=== PATIENT | female | born 1975 ===

== ENCOUNTER 2016-09-29 17:00 | Observation (INO) | payer OTHER ==
[2016-09-29 17:16] VITALS: BMI 27.3
[2016-09-29 19:09] LABS: HEMATOCRIT 43.3 % (36.0-48.0); MEAN CELL VOLUME 76.6 fL (80.0-105.0); MEAN CORPUSCULAR HGB CONC 33.9 g/dl (31.0-37.0); MEAN PLATELET VOLUME 8.9 fl (7.0-11.0); RED CELL DISTRIBUTION WIDTH 15.3 % (11.5-14.5); WHITE BLOOD COUNT 10.7 10^3/ul (4.5-11.0)
[2016-09-29 19:40] LABS: ALB/GLOB RATIO 1.1 (1.1-1.8); ALKALINE PHOSPHATASE 94 U/L (38-133); ALT/SGPT 39 U/L (7-56); AST/SGOT 22 U/L (15-39); BILIRUBIN,TOTAL 0.6 mg/dL (0.2-1.3); BLOOD UREA NITROGEN 16 mg/dL (7-21); CALCIUM 9.8 mg/dL (8.4-10.5); CARBON DIOXIDE 28 mmol/L (21-33); CHLORIDE 101 mmol/L (98-107); GFR AFRICAN-AMERICAN > 60; GLUCOSE,RANDOM 89 mg/dL (70-110); LIPASE 67 U/L (23-300); POTASSIUM 4.7 mmol/L (3.6-5.0); SODIUM 138 mmol/L (132-148); TOTAL PROTEIN 8.6 g/dL (5.8-8.3)
[2016-09-29 20:17] LABS: URINE BILIRUBIN NEGATIVE (NEGATIVE); URINE BLOOD MODERATE (NEGATIVE); URINE GLUCOSE (UA) NEGATIVE (NEGATIVE); URINE KETONE NEGATIVE (NEGATIVE); URINE LEUKOCYTE ESTERASE TRACE Leu/uL (NEGATIVE); URINE PROTEIN NEGATIVE mg/dL (<30 mg/dL); URINE UROBILINOGEN 0.2 E.U./dL (<1 E.U./dL)
[2016-09-29 20:26] LABS: URINE APPEARANCE SLIGHT-CLOUDY (CLEAR); URINE COLOR YELLOW (YELLOW)
--- NOTE | 2016-09-29 20:34 | ED PDOC ---
Arrival/HPI - General Historian: Patient - History of Present Illness Time/Duration: > month Symptom Onset: Gradual Symptom Course: Unchanged <Kiel Green - Last Filed: 09/29/16 23:03> <Lisa Garcia - Last Filed: 09/29/16 23:50> - General Chief Complaint: Abdominal Pain Time Seen by Provider: 09/29/16 17:43 - History of Present Illness Narrative History of Present Illness (Text): 09/29/16 20:30 41 year old female who denies past medical history presents to the emergency department with 3 month duration of epigastric pain. She states the pain is worse with eating. Patient reports intermittent nausea but none now. She also reports diarrhea earlier which has fully resolved. Denies black stool, hematuria , dysmenorrhea. (Kiel Green) Modifying Factors (Text): Worse with eating (Kiel Green) Past Medical History - Provider Review Nursing Documentation Reviewed: Yes - Psychiatric Hx Substance Use: No <Kiel Green - Last Filed: 09/29/16 23:03> Family/Social History - Physician Review Nursing Documentation Reviewed: Yes Family/Social History: Unknown Family HX Smoking Status: Unknown If Ever Smoked Hx Alcohol Use: No Hx Substance Use: No <Kiel Green - Last Filed: 09/29/16 23:03> Allergies/Home Meds <Kiel Green - Last Filed: 09/29/16 23:03> <Lisa Garcia - Last Filed: 09/29/16 23:50> Allergies/Adverse Reactions: Allergies No Known Allergies Allergy (Verified 09/29/16 17:17) Review of Systems - Physician Review All systems were reviewed & negative as marked: Yes <Kiel Green - Last Filed: 09/29/16 23:03> Physical Exam Vital Signs Reviewed: Yes Temperature: Afebrile Blood Pressure: Normal Pulse: Regular Respiratory Rate: Normal Appearance: Positive for: Well-Appearing, Non-Toxic, Comfortable Pain Distress: None Mental Status: Positive for: Alert and Oriented X 3 <Kiel Green - Last Filed: 09/29/16 23:03> <Lisa Garcia - Last Filed: 09/29/16 23:50> - Physical Exam Narrative Physical Exam (Text): - Review of Systems Constitutional: Normal. absent: Fatigue, Weight Change, Fevers Eyes: Normal ENT: Normal Respiratory: Normal absent: SOB, Cough, Sputum Cardiovascular: Normal absent: Chest pain, Palpitations, Syncope Gastrointestinal: Abdominal pain, Diarrhea (resolved), Nausea (resolved) absent : Vomiting, Black stool Genitourinary: Normal. absent: Dysuria, Frequency, Hematuria, Dysmenorrhea Musculoskeletal: Normal. absent: Arthralgias, Back Pain, Neck Pain Skin: Normal Neurological: Normal absent: Focal Weakness Endocrine: Normal Hemo/Lymphatic: Normal Psychiatric: Normal - Physical exam Patient appears age appropriate, speaking full sentences without difficulty - Systems Exam Head: Present: Atraumatic, Normocephalic Pupils: Present: PERRL Extraocular Muscles: Present: EOMI Conjunctiva: Present: Normal Mouth: Present: Moist Mucous Membranes Neck: Present: Normal Range of Motion. No: MIDLINE TENDERNESS, Paraspinal Tenderness Respiratory/Chest: Present: Clear to Auscultation, Good Air Exchange. No: Respiratory Distress, Accessory Muscle Use, Tachypnic Cardiovascular: Present: Regular Rate and Rhythm, Normal S1, S2, Peripheral Pulses Present. No: Murmurs Abdomen: Present: Mild epigastric tenderness to palpation, Normal Bowel Sounds, No: Peritoneal Signs, Rebound, Guarding, Distention Back: Present: Normal Inspection. No: Midline Tenderness, Paraspinal Tenderness Upper Extremity: Present: Normal Inspection. No: Cyanosis, Edema Lower Extremity: Present: Normal Inspection. No: Edema Neurological: Present: GCS=15, Speech Normal, cranial nerves II through XII fully intact with no cerebellar abnormality, neuro-sensory fully intact. No focal neurological deficits. Skin: Present: Warm, Dry, Normal Color. No: Rashes Lymphatic: Present: OX3, NI, NC Psychiatric: Present: Alert, Oriented x 3, Normal Insight, Normal Concentration (Zelikson,Kiel) Vital Signs Temp Pulse Resp BP Pulse Ox 09/29/16 21:50 73 19 104/49 L 99 09/29/16 20:50 78 18 97/66 L 97 09/29/16 19:48 76 18 100/66 100 09/29/16 17:18 97.8 F 63 17 104/65 100 Medical Decision Making <Zelikson,Kiel - Last Filed: 09/29/16 23:03> <Lisa Garcia - Last Filed: 09/29/16 23:50> ED Course and Treatment: Impression: 41 year old female who denies past medical history presents to the emergency department with 3 month duration of epigastric pain. On physical exam , patient has mild epigastric tenderness to palpation Differential Diagnosis included but are not limited to: Gastritis vs nonspecific abdominal pain Plan: -- CT Abdomen/Pelvis -- Protonix -- Labs -- Reassess and disposition Progress Notes: 09/29/16 22:02 On reevaluation, patient reports that she feels much better and would like to be discharged home. Patient's repeat abdominal exam is soft, nontender, non distended with positive bowel sounds in all 4 quadrants and no peritoneal signs. Patient is tolerating PO without any difficulty. Patient refusing to wait for CAT scan in the emergency department and asking to be discharged home at this time. Patient is aware of the risks of leaving without imaging. Pt states she understands to return to the ER right away for new or worsening symptoms or for inability to f/u with PMD or specialist as instructed. Patient states that she fully agrees with and understands discharge instructions. States that she agrees with the plan and disposition. Verbalized and repeated discharge instructions and plan. I have given the patient opportunity to ask any additional questions. 09/29/16 23:03 pt now states she wants to stay and wait for CT signed out to Dr. Garcia in stable condition (Kiel Green) - Lab Interpretations Lab Results: 09/29/16 18:48 09/29/16 19:27 Lab Results 09/29/16 20:01: Urine Color Yellow, Urine Appearance Slight-cloudy, Urine pH 6.0 , Ur Specific [place] 1.020, Urine Protein Negative, Urine Glucose (UA) Negative , Urine Ketones Negative, Urine Blood Moderate H, Urine Nitrate Negative, Urine Bilirubin Negative, Urine Urobilinogen 0.2, Ur Leukocyte Esterase Trace H, Urine RBC 1 - 3, Urine WBC 1 - 3, Ur Epithelial Cells 1 - 3 09/29/16 19:27: Sodium 138, Potassium 4.7, Chloride 101, Carbon Dioxide 28, Anion Gap 14, BUN 16, Creatinine 0.7, Est GFR ( Amer) > 60, Est GFR (Non- Af Amer) > 60, Random Glucose 89, Calcium 9.8, Total Bilirubin 0.6, AST 22, ALT 39, Alkaline Phosphatase 94, Total Protein 8.6 H, Albumin 4.5, Globulin 4.1, Albumin/Globulin Ratio 1.1, Lipase 67 09/29/16 18:48: WBC 10.7, RBC 5.65, Hgb 14.7, Hct 43.3, MCV 76.6 L, MCH 26.0, MCHC 33.9, RDW 15.3 H, Plt Count 351, MPV 8.9 - RAD Interpretation Radiology Orders: 09/29/16 18:35 ABD & PELVIS IV CONTRAST ONLY [CT] Stat - Medication Orders Current Medication Orders: Discontinued Medications Pantoprazole Sodium (Protonix Inj) 40 mg IVP STAT STA Stop: 09/29/16 18:37 Last Admin: 09/29/16 19:29 Dose: 40 mg ED OBSERVATION Date of observation admission: 09/29/16 Time of observation admission: 17:10 <Kiel Green - Last Filed: 09/29/16 23:03> Discharge: Yes <Lisa Garcia - Last Filed: 09/29/16 23:50> - Observation admission statement Patient is being placed in observation because:: abdominal pain (Kiel Green) - Goals of Observation Goals of observation are:: labs and imaging (Kiel Green) - Progress Note Progress Note: 09/29/16 23:43 Case signed out to me by Dr. Green, pending CT Scan, revaluation and disposition. CT Abdomen and Pelvis results reviewed: FINDINGS: Lower thorax: The bilateral lung bases are clear. ABDOMEN: Liver: No acute findings. Gallbladder and bile ducts: The gallbladder is decompressed. No calcified stones. No significant intra- or extrahepatic biliary ductal dilation. Pancreas: Enhances homogeneously. No ductal dilation. No discrete mass. Spleen: No acute findings. Adrenals: No acute findings. Kidneys and ureters: No acute findings. No hydronephrosis or renal calculi. No discrete solid mass. PELVIS: Bladder: No acute findings. Reproductive: Multiple areas of fluid attenuation are identified within the right adnexa, the largest measuring 5.7 cm in greatest dimension. Appendix: The air filled appendix is of normal caliber (series 2, image 90) . ABDOMEN and PELVIS: Stomach and bowel: No obstruction. No mucosal thickening. Peritoneum: No significant fluid collection. No free air. Lymph nodes: No pathologically enlarged lymph nodes. Vasculature: Unremarkable. Bones: No acute fracture. IMPRESSION: 5.7 cm right adnexal cyst, for which dedicated ultrasound may be performed for confirmation. 09/29/16 23:46 Patient endorsed to me by Dr. Green to follow up CT results. Labs were unremarkable. CT showed a R adnexal cyst, which is likely incidental as it is not the location of the pain; she may obtain an outpatient sono as she follows up with [facility] as she has been instructed to do - will d/c home to f/u [facility] and medical clinic. (Lisa Garcia) - Scribe Statement The provider has reviewed the documentation as recorded by the Scribe <Kiel Green - Last Filed: 09/29/16 23:03> <Lisa Garcia - Last Filed: 09/29/16 23:50> - Scribe Statement Carlos Vasquez Provider Scribe Attestation: All medical record entries made by the Scribe were at my direction and personally dictated by me. I have reviewed the chart and agree that the record accurately reflects my personal performance of the history, physical exam, medical decision making, and the department course for this patient. I have also personally directed, reviewed, and agree with the discharge instructions and disposition. (Kiel Green) Disposition/Present on Arrival - Present on Arrival Any Indicators Present on Arrival: No History of DVT/PE: No History of Uncontrolled Diabetes: No Urinary Catheter: No History of Decub. Ulcer: No History Surgical Site Infection Following: None - Disposition Have Diagnosis and Disposition been Completed?: Yes Disposition Time: 17:10 Patient Plan: Discharge <Kiel Green - Last Filed: 09/29/16 23:03> - Disposition Patient Plan: Discharge <Lisa Garcia - Last Filed: 09/29/16 23:50> - Disposition Diagnosis: Abdominal pain, Cyst of ovary, right Disposition: HOME/ ROUTINE Patient Problems: Current Active Problems Problem Status Onset Abdominal pain Acute Condition: GOOD Discharge Instructions (ExitCare): Abdominal Pain (ED), Ovarian Cyst (ED) Print Language: SWEDISH Additional Instructions: FOLLOW UP WITH GYNECOLOGY AND PRIMARY CARE. PLEASE RETURN TO THE EMERGENCY DEPARTMENT FOR NEW OR WORSENING SYMPTOMS. RETURN RIGHT AWAY IF YOU CANNOT FOLLOW UP WITH YOUR PRIMARY CARE DOCTOR, CLINIC, OR SPECIALIST IN 1-2 DAYS. RECOMMEND OUTPATIENT ULTRASOUND TO BE ARRANGED YOU FOLLOW UP WITH GYNECOLOGY. Prescriptions: Famotidine [Pepcid] 20 mg PO BID #14 tab Referrals: PCP,NO [Primary Care Provider] - Follow up with primary Benny Chaves MD [Medical Doctor] - Follow up with primary Ramón West DO [Staff Provider] - Follow up with primary [facility] [place] [Outside] - Follow up with primary Forms: WORK NOTE
--- NOTE | 2016-09-29 23:12 | CT ---
EXAM: CT Abdomen and Pelvis With Intravenous Contrast CLINICAL HISTORY: 41 years old, female; Pain; Abdominal pain; Acute; Additional info: Abd pain TECHNIQUE: Axial computed tomography images of the abdomen and pelvis with intravenous contrast. This CT exam was performed using one or more of the following dose reduction techniques: automated exposure control, adjustment of the mA and/or kV according to patient size, and/or use of iterative reconstruction technique. Coronal and sagittal reformatted images were created and reviewed. CONTRAST: 100 mL of OMNI 350 administered intravenously. COMPARISON: No relevant prior studies available. FINDINGS: Lower thorax: The bilateral lung bases are clear. ABDOMEN: Liver: No acute findings. Gallbladder and bile ducts: The gallbladder is decompressed. No calcified stones. No significant intra- or extrahepatic biliary ductal dilation. Pancreas: Enhances homogeneously. No ductal dilation. No discrete mass. Spleen: No acute findings. Adrenals: No acute findings. Kidneys and ureters: No acute findings. No hydronephrosis or renal calculi. No discrete solid mass. PELVIS: Bladder: No acute findings. Reproductive: Multiple areas of fluid attenuation are identified within the right adnexa, the largest measuring 5.7 cm in greatest dimension. Appendix: The air filled appendix is of normal caliber (series 2, image 90) . ABDOMEN and PELVIS: Stomach and bowel: No obstruction. No mucosal thickening. Peritoneum: No significant fluid collection. No free air. Lymph nodes: No pathologically enlarged lymph nodes. Vasculature: Unremarkable. Bones: No acute fracture. IMPRESSION: 5.7 cm right adnexal cyst, for which dedicated ultrasound may be performed for confirmation.
[2016-09-30 00:56] VITALS: BP 93/62; PULSE 72; RESP 18; TEMP 98.2; O2SAT 98
== END 2016-09-29 23:50 | disposition home or self-care (01) ==
LOC: ED 17:00 → EROBSV 23:02
PROVIDERS: ADMIT Emergency Medicine; ATTEND Emergency Medicine
DX: N83.201 Unspecified ovarian cyst, right side (principal); R10.9 Unspecified abdominal pain
CPT/HCPCS: 74177; 80053; 81001; 83690; 85027; 87086; 96374; 99284; C9113; G0378